=== PATIENT | male | born 1975 | race Caucasian/White ===

== ENCOUNTER → 2016-12-25 | Outpatient (REF) ==
[~2016-12-25] MED LIST: AMOXICILLIN 8751 TAB PO; ATICAND; CEPHALEXIN500 M1 PO; FLEXERIL 1010 MG/TAB PO; NO HOME MEDICATIONS; NORCO 325 MG-51 TAB PO; ZESTRIL 20MG TA20 MG PO
== END ==
LOC: WSOH 09:26
DX: Z00.00 Encounter for general adult medical examination without abnormal findings (principal)